=== PATIENT | female | born 1975 | race Caucasian/White ===

== ENCOUNTER 2021-11-11 19:04 | Emergency (ER) | payer OTHER ==
[2021-11-11 20:27] LABS: HEMOGLOBIN 8.6 gm/dl (12.3-15.3); RED BLOOD COUNT 2.24 M/UL (4.00-5.10); WHITE BLOOD COUNT 12.8 K/UL (4.5-11.0)
[2021-11-11 23:50] LABS: BODY FLUID SOURCE ASCITES
[2021-11-11 23:51] LABS: MONONUCLEAR CELLS 62.9 (75-100); POLYMORPHONUCLEAR % 37.1 (0-25); RBC (AUTOMATED) 200 (0-100000); WBC (AUTOMATED) 35 (0-500)
[2021-11-12] MEDS ORDERED: SPIRONOLACTONE50 MG PO (03:33)
[2021-11-12] MEDS ORDERED: LASIX20 MG PO (03:33)
== END 2021-11-12 03:50 | disposition home or self-care (01) ==
LOC: ER1 19:04
PROVIDERS: Family Medicine; Physician Assistant Medical
PROC: 0W9G3ZZ Drainage of Peritoneal Cavity, Percutaneous Approach (ICD-10-PCS; principal; 2021-11-11)
PROC: BW40ZZZ Ultrasonography of Abdomen (ICD-10-PCS; 2021-11-11)
DX: K74.60 Unspecified cirrhosis of liver (principal); R18.8 Other ascites
CPT/HCPCS: 71045; 80053; 81001; 82140; 82270; 82550; 82553; 82945; 83605; 83986; 84439; 84443; 84484; 85025; 85610; 87205; 89051; 93005; 96374; 96375; 99284; J2270; J2405; P9047; Q9967

== ENCOUNTER 2021-11-19 14:54 | Emergency (ER) | payer OTHER ==
[~2021-11-19 14:54] MED LIST: LASIX20 MG PO; SPIRONOLACTONE50 MG PO
[2021-11-19 17:06] LABS: HEMOGLOBIN 8.6 gm/dl (12.3-15.3); RED BLOOD COUNT 2.24 M/UL (4.00-5.10)
== END 2021-11-19 22:21 | disposition home or self-care (01) ==
LOC: ER1 14:54
PROVIDERS: Physician Assistant
PROC: 0W9G3ZZ Drainage of Peritoneal Cavity, Percutaneous Approach (ICD-10-PCS; principal; 2021-11-19)
DX: K74.60 Unspecified cirrhosis of liver (principal); R18.8 Other ascites; K76.6 Portal hypertension; I85.10 Secondary esophageal varices without bleeding; F17.210 Nicotine dependence, cigarettes, uncomplicated
CPT/HCPCS: 71045; 80053; 82550; 82553; 83690; 84484; 85025; 93005; 96374; 96375; 96376; 99284; J2270; J2405

== ENCOUNTER 2022-02-10 17:35 | Emergency (ER) | payer OTHER | END 2022-02-10 19:26 | disposition home or self-care (01) | LOC: ER1 17:35 | DX: R10.9 Unspecified abdominal pain (principal); N93.9 Abnormal uterine and vaginal bleeding, unspecified; E03.9 Hypothyroidism, unspecified; F17.200 Nicotine dependence, unspecified, uncomplicated; W19.XXXA Unspecified fall, initial encounter | CPT/HCPCS: 99283 ==